=== PATIENT | male | born 1970 | race Caucasian/White ===

== ENCOUNTER 2022-04-06 15:34 | Emergency (ER) | payer SELFPAY ==
--- NOTE | 2022-04-06 15:36 | PC.NURSE ---
pt states he does not want to wait a long time and states he will come back later.
== END 2022-04-06 15:36 | disposition left against medical advice (07) ==
LOC: ANHED 15:54
PROVIDERS: PCP Physician Assistant
DX: Z53.21 Procedure and treatment not carried out due to patient leaving prior to being seen by health care provider (principal)
CPT/HCPCS: 99199

== ENCOUNTER 2022-06-10 01:24 | Day surgery (SDC) | payer OTHER, SELFPAY ==
[2022-06-04 14:17] VITALS: BMI 20.1
--- NOTE | 2022-06-04 14:21 | PC.NURSE ---
Report to the Outpatient Waiting Room, entrance under the green pavilion located off [facility], at time 6:00 on date 06/10/22. Planned Procedure Time: 7:30. Time changes happen often and if your time is changed the preop area will call you the afternoon before. - You and your visitor will be asked to self-screen and do not enter if you have any COVID symptoms. - Only one visitor is requested with a max of two and NO children visitors are allowed at this time. - The patient visitor may be requested to leave or wait in car when not with patient due to distancing restrictions. - A mask is optional within the hospital. Patients may have clear liquids (water, carbonated beverages, clear teas, apple juice) until 3 hours prior to surgery (4:30) with a maximum of 20 ounces. - No food from midnight until time of surgery Take the following medications with a SIP of water the morning of surgery: N/A Medications to discontinue per physician: N/A Date to take last dose: N/A Please no make-up, nail icelandic, hairspray, perfume, deodorant, or body powder the day of surgery. No jewelry (including any body piercings) or valuables the day of surgery, leave them at home. Please take a shower or bath the night before, or the morning of, surgery with an antibacterial soap. Wear comfortable, loose fitting clothing. - Jewelry must be removed prior to entering the operating room. Rings and piercings that are not removed may be cut off. - The hospital will not accept responsibility for valuables. - Please leave all valuables, including medications, at home the day of surgery. If you are going home after surgery, a licensed equipment driver must drive you home. - NO public transportation without another adult if you receive anesthesia. - We recommend that an adult stay with you for 24 hours following discharge. - We also recommend that you do not drive, make important decision, drink alcoholic beverages, or take any drugs that were not prescribed by your health care provider for at least 24 hours after your discharge time. Follow any additional instructions given to you from your surgeon. If you or anyone in your household have experienced Covid symptoms in the past week, please notify your surgeon or the nurse liaison at the phone number below for possible testing. Telephone instructions given to PT - RAHEL DARDEN and asked if any additional questions and then verbalized understanding. Patient advised to call surgeon office or pre surgery nurse liaison [phone] if any additional questions.
--- NOTE | 2022-06-08 13:15 | PM.IMHP ---
H&P: HPI History of Present Illness Date/Time: 06/08/22 13:15 Chief Complaint: The patient is a 51 year old male who presents with left shoulder pain ongoing chronic in nature. It has been bothering him for several months now reports aching pain radiates into the upper arm for the shoulder worse with activities and relieved by rest. The patient reports painful giving way and weakness with any heavy repetitive activity cannot reach out or overhead without significant discomfort. Despite conservative measures including cortisone injections physical therapy and anti-inflammatory medications symptoms continue. X-rays showed AC joint arthrosis and impingement with a type 2 acromion and moderate sub acromial outlet narrowing the MRI scan also shows what appears to be full-thickness tear the superior fibers of the subscapularis tendon possibly involving the anterior margin of the supraspinatus tendon. The bicipital labral complex is grossly intact. There is AC joint hypertrophy type 2 acromion also noted on MRI. At this point the patient is aware the above findings he has discussed further treatment options in detail Dr. Clemente would like to proceed with surgical intervention. Review of Systems Review of Systems: Ten point review of systems otherwise negative PMFSH Social History Social History Smoking packs per day: 1 Smoking cigarettes per day: 20.0 Years smoked: 30 Smoking pack-years: 30.00 Smoking status: Current every day smoker Tobacco type: cigarettes Alcohol intake: never Substance use: current Substance use type: marijuana Living arrangements: with family Additional living arrangements comments: DAUGHTER Spiritual care concerns: No Meds Home Medications and Allergies Home Medications Medication Instructions Recorded Confirmed Type No Home Medications 06/04/22 06/04/22 History Allergies Allergy/AdvReac Type Severity Reaction Status Date / Time No Known Allergies Allergy Verified 06/04/22 14:16 Exam Narrative: on exam the patient is noted be a well-developed well-nourished male no acute distress alert oriented x3. Normal mood and affect. Patient is 5 ft 6 in tall 125 lb. Hearing and vision intact. Respiratory is good no distress. Pulse regular rhythm. Abdomen benign. Extremities show the patient's left shoulder to be painful with manipulation and range of motion patient has weakness with external rotation and abduction. Positive impingement sign. Pain with extremes of motion full range of motion actively and passively is noted full painless neck motion is also noted. Shoulder joint is otherwise stable neurovascular is intact skin is intact MRI scan is as above. Central nervous system within normal limits. Assessment and Plan Assessment and plan (1) Rotator cuff tear, left: Code(s): M75.102 - Unspecified rotator cuff tear or rupture of left shoulder, not specified as traumatic Status: Acute (2) Arthritis of left acromioclavicular joint: Code(s): M19.012 - Primary osteoarthritis, left shoulder Status: Acute Plan by MRI and exam the patient is noted to have impingement with AC joint arthrosis and rotator cuff tendon tearing of the left shoulder as described above. The patient has discussed risks benefits limitations and alternatives to surgery in great detail Dr. Clemente and he is now ready to proceed with a left shoulder arthroscopy acromioplasty open distal clavicle excision rotator cuff tendon debridement and repair proceed as indicated. The patient is scheduled to undergo surgery 06/10/2022 at [facility] with Dr. Clemente. The patient voiced understanding and agrees with the above plan.
[2022-06-10] VITALS (9 sets, daily range): BP systolic 137–171; BP diastolic 79–106; PULSE 67–86; RESP 12–16; TEMP 36.7–37; O2SAT 93–100
--- NOTE | 2022-06-10 06:00 | ECG_ITS ---
Measurements Intervals [place] Rate: 61 P: 72 MO: 163 QRS: 68 QRSD: 91 T: 62 QT: 407 QTc: 412 Interpretive Statements SINUS RHYTHM POSSIBLE LEFT ATRIAL ENLARGEMENT RSR' IN V1 OR V2, PROBABLY NORMAL VARIANT DELAYED PRECORDIAL R/S TRANSITION BORDERLINE ECG NO PREVIOUS ECG AVAILABLE FOR COMPARISON Electronically Signed On 06-10-2022 9:07:20 FUNERAL SERVICE APPRENTICE by Guru Michel D.O.
[2022-06-10] MEDS: ACETAMINOPHEN 500 MG TABLET 1000 MG PO (06:21)
[2022-06-10] MEDS: LACTATED RINGERS 1,000 ML 30 ML IV CONT (06:47)
[2022-06-10] MEDS: KETOROLAC 15 MG/ML VIAL (*BKC) IV PUSH (06:51)
--- NOTE | 2022-06-10 06:58 | WPDHPUPDATE1 ---
History and Physical Update Update Date/Time: 06/10/22 06:58 History and Physical has been reviewed, including an updated exam of the patient. There are NO changes in the patient's condition. Risks, benefits, and alternatives have been discussed and questions answered. Patient agrees to proceed with procedure.
--- NOTE | 2022-06-10 06:59 | WPDHPUPDATE1 ---
History and Physical Update Update Date/Time: 06/10/22 06:59 History and Physical has been reviewed, including an updated exam of the patient. There are NO changes in the patient's condition. Risks, benefits, and alternatives have been discussed and questions answered. Patient agrees to proceed with procedure.
--- NOTE | 2022-06-10 07:18 | P.PNAN_ITS ---
Anes - Initial Pre Proc Eval Procedure: Operation Date: 06/10/22 07:30 Proposed Procedures p Left Shoulder Arthroscopy, Acromioplasty, Open Distal Clavical Excision, Proceed as Indicated - Sinan Clemente MD Date/Time: 06/10/22 07:18 Surgeon: Sinan Clemente MD Pre Op Diagnosis: Lt Shoulder Rot Cuff Tear Patient Data Age: 51 Gender: M Height: 1.68 m Weight: 56 kg Last Vital Signs Temp 37.0 C 06/10/22 06:20 Pulse 68 06/10/22 06:20 Resp 16 06/10/22 06:20 BP 165/90 H 06/10/22 06:20 Pulse Ox 100 06/10/22 06:20 O2 Del Method Room Air 06/10/22 06:20 Allergies Allergy/AdvReac Type Severity Reaction Status Date / Time No Known Allergies Allergy Verified 06/10/22 06:19 Home Medications Medication Instructions Recorded Confirmed Type No Home Medications 06/04/22 06/10/22 History Patient hx anesthesia problems: post op nausea/vomiting Family hx anesthesia problems: post op nausea/vomiting Results Review: All pre-operative results and documents have been reviewed as part of the pre- operative evaluation. [facility] Social History Social History Smoking packs per day: 1 Smoking cigarettes per day: 20.0 Years smoked: 30 Smoking pack-years: 30.00 Smoking status: Current every day smoker Tobacco type: cigarettes Alcohol intake: never Substance use: current Substance use type: marijuana Living arrangements: with family Additional living arrangements comments: DAUGHTER Spiritual care concerns: No Anes - Eval Final PreProcedure Day of Procedure 06/10/22 07:18 Patient weight: thin Heart: regular rate and rhythm Lungs: decreased breath sounds Airway: Mallampati scale class II Neurological: alert and oriented Last oral intake: >/= 8 hours ASA classification: III Emergent: no Anesthetic plan: proceed Anesthesia type and monitoring: general LMA and standard monitoring Results Review: All pre-operative results and documents have been reviewed as part of the pre- operative evaluation. Informed Consent: The patient's anesthetic plan and its attendant risks and benefits were discussed with the patient/family/POA. Questions were solicited and answers provided to the satisfaction of the patient/family/POA.
[2022-06-10] MEDS: ceFAZolin 2 GM/D5W 50 ML 2 GM/50 ML BAG IVPB (07:23)
[2022-06-10] MEDS: BUPIVACAINE/EPINEPHRINE 0.25% 50 ML VIAL 20 ML INFILTRATE (08:03)
--- NOTE | 2022-06-10 08:36 | W.PM.PROC2 ---
Procedure Note - Detailed Date of Procedure 06/10/22 Pre-op Diagnosis Lt Shoulder Rot Cuff Tear A/C Joint arthrosis Post-op Diagnosis Same Procedure Performed Rotator cuff repair, distal clavicle excision Left Shoulder Surgeon Sinan Clemente MD Supervisor Alteration Workroom Moses Foster Anesthesia General Description of Procedure Patient brought to the operative 7. A general anesthetic was administered placed in the beach chair position the left shoulder exposed. After sterile prep and drape standard portals were used for arthroscopy posterior lateral the joint itself looked reasonably good the biceps tendon was intact. He had fraying and tearing of the rotator cuff area in the supraspinatus tear region. Edematous the subacromial space and an intense bursa was encountered this was debrided with a shaver and acromioplasty performed arthroscopically. He was quite tight however is acromion was then. I then proceeded to open the shoulder longitudinal incision made from the AC joint distalward over the shoulder. Dissection carried down to the fascia the fascia of the aces acromioclavicular joint split the AC joint found a distal clavicle excision performed removing 3 to 4 millimeters of bone. The edges beveled. The deltoid was then split from the tip of the acromion and the rotator cuff thinning and tearing noted this is debrided and repaired with 2. Ethibond. This tear was small. At this point the deltoid was repaired to itself the prominent trapezius with 2. Ethibond I closed 2-0 Vicryl and israel. Sterile dressing applied patient tolerated well left the operating room satisfactory condition. Estimated Blood Loss 50 Drains No Packing No Pathology None sent Complications No immediate complications Condition Stable Disposition PACU
[2022-06-10] MEDS: SCOPOLAMINE 1.5 MG PATCH TRANSDERM (08:49)
--- NOTE | 2022-06-10 08:52 | WPDANESPNB ---
Anes - Peripheral Nerve Block Date/Time: 06/10/22 08:52 I have discussed with the patient/family/POA the placement of a peripheral nerve block for post-operative pain management, including associated risks, benefits, complications, and side effects. Alternative methods of post-operative analgesia were detailed. Questions were solicited and answers provided to the satisfaction of the patient/family/POA. Time-Out: A pre-procedural Time-Out was completed immediately before starting the procedure and confirmed: Patient Identification, Site, Procedure, Patient Position and the Availability of Requisite Equipment. Clinical Indications: Acute post-operative pain management requested by the operative surgeon. Nerve Block Insertion Note Anes-nerve block: interscalene left Patient position: other (sitting) Skin prep: chlorhexidine Needle: 22 gauge, stimulating, insulated echogenic needle. Needle length: 50 mm Technique: nerve stimulation lost at (mA) (0.3) and ultrasound Technique comment: mid2mg [id number] Injectate: bupivacaine 0.5% with epi 5 mcg/ml (30ml) Observations: tolerated well Complications: none Procedure start time:: 719 Procedure end time:: 726
--- NOTE | 2022-06-10 09:14 | P.OPB_ITS ---
Procedure Note - Brief Procedure Note - Brief Date of procedure: 06/10/22 Pre-op diagnosis: Lt Shoulder Rot Cuff Tear Preop diagnosis impingement with AC joint arthrosis small rotator cuff tendon tear left shoulder postop diagnosis same, status post shoulder arthroscopy acromioplasty open distal clavicle excision rotator cuff tendon debridement and repair left shoulder Procedure performed: left shoulder arthroscopy acromioplasty with open distal clavicle excision and rotator cuff tendon debridement and repair left shoulder. Description of procedure: The patient was taken to the operating room 06 10 22 for the above surgical procedure. I entered the room at 7:30 a.m. at that point I proceeded to position the patient on the beach chair once anesthesia was underway. Once the patient was properly positioned I assisted with sterile prepping and draping. Dr. Clemente then entered the room and proceeded with the above surgical procedure. I assisted throughout the case with hemostasis using suction Bovie wound retraction and positioning of the arm, I also assisted with holding the arthroscope for visualization of the anatomy so that Dr. Clemente could proceed with arthroscopic acromioplasty. once Dr. Clemente completed his portion of the procedure I then proceeded to close the wound, I closed the subcutaneous layers with 2-0 Vicryl interrupted sutures followed by the superficial skin closure u sing israel. I then applied a sterile dressing. I then assisted with transfer the patient from the operating table to the stretcher so that the patient could be discharged to recovery room, he was in stable condition and there were no intraoperative complications. Blood loss was approximately 10 cc. The patient was to be discharged home today. I also applied a sling for support to the left upper extremity. I completed my portion of the procedure and exited the operating room at 8:45 a.m. Surgeon: Surgeon -Sinan Clemente MD 1st teacher's assistant -Moses Foster PA-C
--- NOTE | 2022-07-02 11:31 | PM.DS ---
DS: Admitting Diagnosis Discharge Date 06/10/22 Admitting Diagnosis impingement with rotator cuff tendinitis partial thickness tear rotator cuff tendon left shoulder discharge diagnosis same, status post left shoulder arthroscopy acromioplasty open distal clavicle excision rotator cuff tendon debridement and repair DS: Summary Hospital Course Hospital Course: patient was taken to the operating room on June 10, [address] Ricks underwent left shoulder arthroscopy acromioplasty open distal clavicle excision rotator cuff tendon debridement and repair. Patient tolerated procedure well. Was discharged to recovery good condition observed until awake and ready for discharge. No postoperative complications were noted. The patient was discharged in stable condition with prescription for [place] p.o. p.r.n. pain. The patient was follow-up 2 weeks postop for staple removal and wound recheck work on gentle range of motion use a sling for support use ice for comfort and swelling as well. The patient was instructed to call the office immediately for any problems difficulties or questions. Status at Discharge Cognitive/behavioral status at discharge: Alert oriented x3. Normal mood and affect. Time Spent with Patient Time attestation: Total time spent providing and/or coordinating discharge services: Exam Narrative: Vital signs stable afebrile neurovascular the patient is intact to wound is clean and dry dressing in place. Patient is alert oriented x3. Normal mood and affect. Ready for discharge to the day of the surgery. DS: Data Procedures/Treatments: Left shoulder arthroscopy acromioplasty open distal clavicle excision rotator cuff tendon debridement and repair. Discharge Plan Discharge Patient Disposition: Home, Self-Care Discharge Instructions: SINAN RICKS M.D. [facility], [place] [id number] POST OPERATIVE DISCHARGE INSTRUCTIONS FOLLOWING SHOULDER ARTHROSCOPY Your arthroscopic procedure was performed with special micro-instruments. Following your procedure, it is important that you read, understand, and carry out the following instructions. 1. Ice the shoulder frequently for 20minute intervals 3-4 times each day, particularly the first 3 days. The wounds should be kept clean and dry until they have sealed over. Two days following your arthroscopy, you can remove the dressing and cover the puncture wounds with band-aids. Do not get the wound wet. Change the band-aids every day. 3. Extremity/shoulder exercises as instructed per Physical Therapy. These include Active Assistive Range of Motion-hand, wrist, elbow and cane exercises twice a day. 4. Diet as tolerated. 5. Wear sling radio time salesperson except for exercise. Limited hand usage. 6. Continue home medications as prescribed. You can resume your anti-inflammatory medication or take an [id number] non-steroidal anti-inflammatory medication, such as Advil, for the first month following surgery. If you take Advil, you can take 2 tablets every 8 hours. If this pain medicine does not provide adequate relief, please call your surgeon. 7. Do not drive or operate machinery for 24 hours due to the medication received. 8. Your follow-up appointment is in 1-2 weeks. Please call to confirm. 9. For problems during office hours call the above office number. When the office is closed, call the office and an emergency number will be given to you. Remove the Scopolamine patch that was placed behind your ear in 72 hours or less. Wash your hands after touching. Tylenol given at 6:50am. No tylenol before at least 10:50am. Patient Instructions: Rotator Cuff Tear Repair (GEN) Stand Alone Forms: General Discharge Instructions Follow-up/Referrals: Sinan Ricks MD [Physician] - Discharge Medications: New hydrocodone-toney
== END 2022-06-10 10:48 | disposition home or self-care (01) ==
PROVIDERS: PCP Physician Assistant; Visit Provider Orthopaedic Surgery
PROC: (CPT 29805; principal; 2022-06-10 07:30)
DX: M75.102 Unspecified rotator cuff tear or rupture of left shoulder, not specified as traumatic (principal); M19.012 Primary osteoarthritis, left shoulder; G89.18 Other acute postprocedural pain; F17.210 Nicotine dependence, cigarettes, uncomplicated; F12.90 Cannabis use, unspecified, uncomplicated
CPT/HCPCS: 23412; 23120; 64415; 93005; A9270; J0690; J1100; J1885; J2250; J2270; J2405; J2704; J7120

== ENCOUNTER 2022-11-18 09:45 | Outpatient (CLI) | payer OTHER, SELFPAY ==
--- NOTE | 2022-11-18 11:00 | NEURO_ITS ---
Impression: # Status post left shoulder surgery. Complains of decreased strength in left upper extremity. 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 # No Carpal Tunnel Syndrome. # Normal needle/EMG exam without evidence of Denervation potentials generally except decreased motor unit potentials in the left bicep muscle. # Clinical correlation recommended. Nerve Conduction Studies Anti Sensory Summary Table Stim Site NR Peak (ms) P-T Amp (?V) Site1 Site2 Delta-P (ms) Dist (cm) Douglas (m/s) Left Median Anti Sensory (2-3nd Digit) Wrist 2.8 61.6 Wrist 2-3nd Digit 2.8 14.0 50 Wrist 2.8 64.0 Wrist 2-3nd Digit 2.8 14.0 50 Left Radial Anti Sensory (Base 1st Digit) Wrist 2.6 40.8 Wrist Base 1st Digit 2.6 0.0 Left Ulnar Anti Sensory (5th Digit) Wrist 2.6 48.1 Wrist 5th Digit 2.6 14.0 54 Motor Summary Table Stim Site NR Onset (ms) O-P Amp (mV) Site1 Site2 Delta-0 (ms) Dist (cm) Douglas (m/s) Left Median Motor (Abd Poll Brev) Wrist 3.3 2.3 Elbow Wrist 5.1 30.0 59 Elbow 8.4 2.8 Left Ulnar Motor (Abd Dig Minimi) Wrist 2.7 8.3 A Elbow Wrist 5.6 28.0 50 A Elbow 8.3 5.9 B Elbow Wrist 3.9 23.0 59 B Elbow 6.6 5.8 F Wave Studies NR F-Lat (ms) L-R F-Lat (ms) Left Median (Mrkrs) (Abd Poll Brev) 26.90 Left Ulnar (Mrkrs) (Abd Dig Min) 27.02 EMG Side Muscle Nerve Root Ins Act Fibs Amp Dur Recrt Comment Left 1stDorInt Ulnar C8-T1 Nml Nml Nml Nml Nml Left Ext Indicis Radial (Post Int) C7-8 Nml Nml Nml Nml Nml Left Ext Digitorum Radial (Post Int) C7-8 Nml Nml Nml Nml Nml Left BrachioRad Radial C5-6 Nml Nml Nml Nml Nml Left PronatorTeres Median C6-7 Nml Nml Nml Nml Nml Left Abd Poll Brev Median C8-T1 Nml Nml Nml Nml Nml Left Biceps Musculocut C5-6 Nml Nml Nml Nml Nml Left Triceps Radial C6-7-8 Nml Nml Nml Nml Nml Left Deltoid Axillary C5-6 Nml Nml Nml Nml Nml MTDD
== END 2022-11-18 09:46 | disposition home or self-care (01) ==
LOC: ANHNEURO 09:45
PROVIDERS: PCP Physician Assistant; Visit Provider Orthopaedic Surgery
DX: G56.22 Lesion of ulnar nerve, left upper limb (principal); M75.122 Complete rotator cuff tear or rupture of left shoulder, not specified as traumatic
CPT/HCPCS: 95886; 95909